=== PATIENT | female | born 1955 | race Caucasian/White ===

== ENCOUNTER → 2024-01-19 13:49 | Outpatient (REF) | payer MEDICARE, SELFPAY | LOC: WDC 13:49 | PROVIDERS: ATTENDING PHYSICIAN Physician Assistant | DX: Z12.31 Encounter for screening mammogram for malignant neoplasm of breast (principal) | CPT/HCPCS: 77063; 77067 ==

== ENCOUNTER 2024-02-22 22:01 | Emergency (ER) | payer MEDICARE, SELFPAY ==
[2024-02-22 22:03] VITALS: BP 193/113
[2024-02-22 22:17] LABS: Urine Albumin 2+ (Neg - Trace); Urine Bilirubin Negative (Negative); Urine Character Very Cloudy (Clear); Urine Color Red; Urine Glucose Negative (Negative); Urine Ketone Trace (Negative); Urine Leukocyte 2+ (Negative); Urine Nitrite Negative (Negative); Urine Occult Blood 4+ (Negative); Urine Urobilinogen Negative (Neg - 1+)
[2024-02-22 22:30] LABS: Urine Red Blood Cell >100 /HPF (0-2)
--- NOTE | 2024-02-22 22:53 | ED.GENMED ---
History of Present Illness
General
Chief Complaint: Urinary Symptoms
Time Seen by Provider: 02/22/24 22:53
History of Present Illness
History of Present Illness:
HPI: The patient presents with gross hematuria along with pain with urination. She has no flank pain. She has no suprapubic pain at rest. She has never had pain like this before. She does take Eliquis for history of 24 hours of atrial
fibrillation from about a year ago. At that time she spontaneously converted back to sinus rhythm and at that time had palpitations. She has not had palpitations recently. She has never had kidney stone in the past.
EXAM:
GENERAL: Well appearing in no distress
HEENT: Moist oral mucosa
CARDIOVASCULAR: No murmurs, normal heart rate, regular rhythm, No chest wall tenderness�exam is consistent with sinus rhythm
PULMONARY: No respiratory distress, breath sounds are clear and equal
ABDOMEN: Soft with no peritoneal signs, no tenderness, elevated BMI, no CVA tenderness
NEUROLOGIC: Excellent strength all extremities, no coordination deficits
PSYCHIATRIC: Appropriate mental status, normal insight and judgement
EXTREMITIES: Nontender, no edema, moves all extremities equally
SKIN: No rash, no lesions
TIME OF INITIAL ENCOUNTER: 11 PM
NUMBER AND COMPLEXITY OF PROBLEMS ADDRESSED AT THE ENCOUNTER
� Chronic conditions affecting care: High blood pressure, hyperlipidemia, paroxysmal A-fib on Eliquis
� Acute Exacerbation and/or Progression of Chronic Illness: This is an acute problem
� Differential Diagnosis includes: Hemorrhagic cystitis, UTI, pyelonephritis, hemorrhage related to Eliquis use
AMOUNT AND/OR COMPLEXITY OF DATA TO BE REVIEWED AND ANALYZED
� I performed an independent evaluation of and my interpretation is:
EKG:
CT:
X-rays:
Laboratory Studies: 4+ blood, greater than 100 RBCs per high-power field,
Other:
� Review of other/old records: I reviewed records. The patient had a nuclear stress test in April 2023
� Clinical information was obtained by an independent historian: I spoke to at bedside
� Prescriptions/Medications Considered but not given:
� Further testing considered but not performed:
RISK OF COMPLICATIONS AND/OR MORBIDITY OR MORTALITY OF PATIENT MANAGEMENT
� Social determinants of health affecting care: Lives at home
� Discussion with other providers:
� Escalation of care including admission/observation vs risk of discharge considered: The patient is noted to be hypertensive. She states she will continue taking her metoprolol. She is also on Eliquis and I suggested that she
holds the next 2 doses (sinus rhythm currently). If her symptoms persist I recommend that she follows up with urology/Dr. Montgomery. I have placed her on antibiotics in case she does have a urinary tract infection.
Past History
Past History
ED Past Medical History: HTN and Hypercholesterolemia
ED Past Surgical History: Orthopedic
Social History
Tobacco: Former smoker
Alcohol: Occasional
Drug: None
Personal:
Living: with family
Phy Exam
Physical Exam
Physical Exam:
See HPI
Course
Orders/Labs/Results
Orders:
Orders
02/22/24 22:11
Urinalysis Reflex To Culture Urgent
Date Specimen was Collected: 02/22/24
Time Specimen was Collected: 22:06
Urine Microscopic Reflex Cult Urgent
Urine Culture Urgent
KRISTIN Source: U
Specimen Description:
Date Specimen was Collected: 02/22/24
Time Specimen was Collected: 22:06
02/22/24 23:07
Cephalexin Monohydrate [Keflex] 500 mg PO NOW STA
Abnormal Lab Results
02/22/24
22:11
Urine Ketones Trace A
(Negative)
Ur Occult Blood Reflex 4+ A
(Negative)
Leukocyte Esterase Rfl 2+ A
(Negative)
Urine RBC >100 A /HPF
(0-2)
Urine Albumin (Reflex) 2+ A
(Neg - Trace)
Vital Signs
Initial and Last Documented VS:
Initial Vital Signs
Temp Pulse Resp BP Pulse Ox
97.6 F 100 16 193/113 95
02/22/24 22:03 02/22/24 22:03 02/22/24 22:03 02/22/24 22:03 02/22/24 22:03
Last Documented Vital Signs
Temp Pulse Resp BP Pulse Ox
97.6 F 88 16 172/115 96
02/22/24 22:03 02/22/24 23:09 02/22/24 23:09 02/22/24 23:09 02/22/24 23:09
*Critical Care Note
Total Time (30-74mins, 75-104mins- exclusive of procedures): Not Applicable
ED Attending Note
-
Portions of this chart may have been created with voice recognition software.� Occasional wrong word or��sound alike� substitutions may have occurred due to the inherent limitations of voice recognition software.
Discharge Plan
Departure
Patient Disposition: Home (Routine Discharge)
Date of Disposition: 02/22/24
Time of Disposition: 23:05
Patient with high blood pressure during this ER visit?: Yes
Discharge Problem:
Hematuria
Instructions: Blood in the Urine (Hematuria), Adult (DC), BLOOD PRESSURE
Prescriptions:
New
cephalexin 500 mg capsule
500 mg PO TID Qty: 21 0RF
No Action
metoprolol succinate [Toprol XL] 25 mg tablet extended release 24 hr
25 mg PO DAILY Qty: 30 0RF
Eliquis 5 mg tablet
5 mg PO BID Qty: 60 0RF
lisinopril-hydrochlorothiazide 20-12.5 mg Tablet
1 tab PO DAILY
Centrum Silver Women 8 mg iron-400 mcg-50 mcg Tablet
1 tab PO DAILY
atorvastatin 20 mg tablet
20 mg PO QPM Qty: 90 3RF
Rx Instructions:
Please note dose increase
Referrals:
Bertrand Montgomery MD [Active] - Follow up in 2-3 days
Activity Restrictions/Additional Instructions:
I recommend holding the next 2 doses of Eliquis. You currently appear to be in sinus rhythm. I have placed you on antibiotics for the possibility of infection. I also recommend that you follow-up with a urologist (such as Dr. Montgomery) for
further evaluation of the blood in the urine.
Interventions
Interventions:
*Risk Screen - Suicide Last Done: 02/22/24 22:03
*General Assessment Last Done: 02/22/24 22:03
*Neglect/Abuse Screening Last Done: 02/22/24 22:03
*ED COVID-19 Vaccine History Last Done: 02/22/24 22:03
Discharge Date and Time
Print Language: [id number]
[2024-02-22 23:09] VITALS: BP 172/115
[2024-02-22 23:12] VITALS: BMI 35.3
[2024-02-22] MEDS: KEFLEX 500 MG PO (23:23)
== END 2024-02-22 23:35 | disposition home or self-care (01) ==
LOC: EMR 22:01
PROVIDERS: Emergency Medicine; EMERGENCY PHYSICIAN Emergency Medicine; FAMILY PHYSICIAN Physician Assistant
DX: R31.9 Hematuria, unspecified (principal); R30.9 Painful micturition, unspecified; I10 Essential (primary) hypertension; E78.00 Pure hypercholesterolemia, unspecified; I48.91 Unspecified atrial fibrillation; Z87.891 Personal history of nicotine dependence; Z79.01 Long term (current) use of anticoagulants
CPT/HCPCS: 99283; 81003; 81015; 87086

== ENCOUNTER → 2024-02-25 12:51 | Outpatient (REF) | payer MEDICARE, SELFPAY | LOC: RAD 12:51 | PROVIDERS: ATTENDING PHYSICIAN Physician Assistant | DX: M25.562 Pain in left knee (principal) | CPT/HCPCS: 73564 ==

== ENCOUNTER → 2024-07-15 06:57 | Outpatient (REF) | payer MEDICARE, SELFPAY | LOC: RAD 06:57 | PROVIDERS: ATTENDING PHYSICIAN Internal Medicine Critical Care Medicine; FAMILY PHYSICIAN Physician Assistant | DX: R91.1 Solitary pulmonary nodule (principal) | CPT/HCPCS: 71250 ==

== ENCOUNTER → 2025-02-24 12:50 | Outpatient (REF) | payer MEDICARE, SELFPAY | LOC: HWRAD 12:50 | PROVIDERS: ATTENDING PHYSICIAN Internal Medicine Critical Care Medicine; FAMILY PHYSICIAN Physician Assistant | DX: R91.1 Solitary pulmonary nodule (principal) | CPT/HCPCS: 71250 ==

== ENCOUNTER → 2025-03-13 13:49 | Outpatient (REF) | payer MEDICARE, SELFPAY | LOC: WDC 13:49 | PROVIDERS: ATTENDING PHYSICIAN Physician Assistant | DX: Z12.31 Encounter for screening mammogram for malignant neoplasm of breast (principal); Z78.0 Asymptomatic menopausal state; M81.0 Age-related osteoporosis without current pathological fracture | CPT/HCPCS: 77063; 77067; 77080 ==